=== PATIENT | male | born 1995 | race Caucasian/White ===

== ENCOUNTER 2019-08-24 16:16 | Inpatient (IN) | payer OTHER ==
[~2019-08-24] VITALS: Ht 175.3 cm; Wt 70.9 kg
--- NOTE | 2019-08-24 17:35 | NUR ---
PATIENT MEETS [facility]. CINA=19. PATIENT IS GOING TO [facility] FOR RESIDENTIAL TREATMENT FOR HIS AFTERCARE PLAN. MARYJANE ARELLANO B.A. CUPOLA MELTER
[2019-08-24 18:00] VITALS: BP 120/58
[2019-08-24 18:51] LABS: BASO % 0.5 % (0.0-1.0); EOS # 0.2 10*3/uL (0.0-0.4); EOS % 2.3 % (1.0-4.0); HEMATOCRIT 39.8 % (42.0-52.0); HEMOGLOBIN 13.2 g/dl (14.0-18.0); LYMPH # 2.5 10*3/uL (1.3-4.4); LYMPH % 32.6 % (27.0-41.0); MEAN CELL VOLUME 90.7 fl (80.0-94.0); MEAN CORPUSCULAR HGB 30.1 pg (27.0-31.0); MEAN CORPUSCULAR HGB CONC 33.2 g/dl (33.0-37.0); MEAN PLATELET VOLUME 9.4 fl (9.6-12.3); MONO # 0.8 10*3/uL (0.1-1.0); MONO % 9.6 % (3.0-9.0); NEUT # 4.3 10*3/uL (2.3-7.9); NEUT % 54.6 % (47.0-73.0); PLATELET COUNT AUTOMATED 297 10*3/uL (130-400); RED BLOOD COUNT 4.39 10*6/uL (4.50-5.90); WHITE BLOOD COUNT 7.8 10*3/uL (4.8-10.8)
[2019-08-24 19:05] LABS: ALKALINE PHOSPHATASE 129 U/L (45-117); BUN 10 mg/dl (7-24); CHLORIDE 100 mmol/L (98-107); CREATININE 0.84 mg/dL (0.70-1.30); POTASSIUM 3.3 mmol/L (3.5-5.1); SGOT/AST 200 IU/L (3-35); SGPT/ALT 585 U/L (12-78); SODIUM 135 mmol/L (136-145); TOTAL PROTEIN 7.4 gm/dL (6.4-8.2)
[2019-08-24 19:06] LABS: ETHYL ALCOHOL < 3.0 mg/dl (<3)
--- NOTE | 2019-08-24 19:07 | NUR ---
23 year old MALE admitted to room # 415 BED 2 for stabilization. 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 Compliant with admission procedure. Patient denies any anxiety, but is unable to sit still, taps toes to floor continuously, looks about room, unable to focus eyes on nurse during interview. See assessment forms for additional information about patient status.
[2019-08-24 19:15] LABS: COLOR YELLOW (YELLOW)
[2019-08-24 19:16] LABS: BILIRUBIN NEGATIVE (NEGATIVE); BLOOD NEGATIVE (NEGATIVE); CLARITY CLEAR (CLEAR); GLUCOSE NEGATIVE (NEGATIVE); KETONE NEGATIVE (NEGATIVE); LEUKO ESTERASE NEGATIVE (NEGATIVE); NITRITE NEGATIVE (NEGATIVE); PH 8.5 (5.0-9.0); SPECIFIC GRAVITY 1.005 (1.005-1.030); UROBILINOGEN 0.2 E.U./dl (0.2-1.0)
[2019-08-24 19:17] LABS: EPITHELIAL CELLS 0-2; WBC 0-2 wbc/hpf (0-5)
[2019-08-24 19:31] LABS: URINE AMPHETAMINES < 1000 (1000ng/ml); URINE BARBITURATES < 200 (200ng/ml); URINE BENZODIAZEPINES < 200 (200ng/ml); URINE CANNABINOIDS (THC) < 50 (50ng/ml); URINE COCAINE > 300 (300ng/ml); URINE METHADONE < 300 (300ng/ml); URINE OPIATES < 300 (300ng/ml)
[2019-08-24 19:32] LABS: URINE PHENCYCLIDINE < 25 (25ng/ml)
[2019-08-24 20:00] VITALS: BP 108/41
[2019-08-25] VITALS: BP 114/54
[2019-08-25 08:00] VITALS: BP 116/58
[2019-08-25 12:00] VITALS: BP 106/49
[2019-08-25 16:00] VITALS: BP 123/69
--- NOTE | 2019-08-25 16:21 | NUR ---
PATIENT HAS BEEN ACCEPTED TO [facility] FOR INPATIENT TREATMENT. PATIENT IS SCHEDULED TO GO August POST DISCHARGE. [facility] STAFF WILL SET UP TRANSPORTATION FOR HIM THROUGH HIS INSURANCE. PATIENT AGREES AND UNDERSTANDS HIS AFTERCARE PLAN. MARYJANE ARELLANO B.A. PHYSICAL TESTING SUPERVISOR
[2019-08-25 20:00] VITALS: BP 118/56
--- NOTE | 2019-08-25 21:46 | NUR ---
PATIENT REQUESTING PAIN MEDICATION FOR TOOTH PAIN, MUSCLE ACHES, AND RESTLESSNESS. MOTRIN, REQUIP, AND ROBAXIN ADMINISTERED PRESCRIBED. WILL MONITOR FOR EFFECTIVENESS.
--- NOTE | 2019-08-25 22:46 | NUR ---
PATIENT RESTING WITH EYES CLOSED. RESPIRTIONS EASY AND UNLABORED. CALL LIGHT IN REACH. WILL MONITOR.
[2019-08-26] VITALS: BP 100/48
--- NOTE | 2019-08-26 02:27 | NUR ---
24 HR chart check completed.
--- NOTE | 2019-08-26 04:09 | NUR ---
PATIENT RESTING WITH EYES CLOSED. RESPIRATIONS EASY AND UNLABORED. CALL LIGHT IN REACH. WILL MONITOR.
--- NOTE | 2019-08-26 06:17 | NUR ---
PATIENT RESTING WITH EYES CLOSED. RESPIRATIONS EASY AND UNLABORED. CALL LIGHT IN REACH. WILL MONITOR.
[2019-08-26 08:00] VITALS: BP 123/61
--- NOTE | 2019-08-26 11:04 | NUR ---
Patient displaying withdrawal symptoms, including: irritability, anxiousness, restlessness and agitation, complicated by impulsive behavior. Patient scores a 5 on the withdrawal scale. Scheduled/PRN medications provided, doctor notified of patient's agitation and AMA potential. Will continue to monitor medication effectiveness.
[2019-08-26 12:00] VITALS: BP 122/64
[2019-08-26 16:00] VITALS: BP 106/57
--- NOTE | 2019-08-26 17:00 | NUR ---
Patient comfortable with no c/o or signs of distress. He is pleasant and polite.
--- NOTE | 2019-08-26 19:54 | NUR ---
24 HR chart check completed.
[2019-08-26 20:00] VITALS: BP 124/73
--- NOTE | 2019-08-26 21:39 | NUR ---
PATIENT REQUESTING MEDICATION FOR ANXIETY,MOTRIN,MUSCLE ACHES,AND SLEEP. VISTARIL, OTRIN, ROBAXIN, AND TRAZODONE ADMINISTERED PRESCRIBED. WILL MONITOR FOR EFFECTIVENESS.
--- NOTE | 2019-08-26 22:39 | NUR ---
PATIENT RESTING WITH EYES CLOSED. RESPIRATIONS EASY AND UNLABORED. CALL LIGHT IN REACH. WILL MONITOR.
[2019-08-27] VITALS: BP 102/55
--- NOTE | 2019-08-27 02:00 | NUR ---
PATIENT RESTING WITH EYES CLOSED. RESPIRATIONS EASY AND UNLABORED. CALL LIGHT IN REACH. WILL MONITOR.
--- NOTE | 2019-08-27 04:00 | NUR ---
PATIENT RESTING WITH EYES CLOSED.RESPIRATIONS EASY AND UNLABORED.CALL LIGHT IN REACH. WILL MONITOR.
[2019-08-27 07:04] LABS: BASO # 0.1 10*3/uL (0.0-0.1); BASO % 0.9 % (0.0-1.0); EOS # 0.3 10*3/uL (0.0-0.4); HEMATOCRIT 42.4 % (42.0-52.0); HEMOGLOBIN 13.6 g/dl (14.0-18.0); LYMPH # 2.6 10*3/uL (1.3-4.4); LYMPH % 34.2 % (27.0-41.0); MEAN CELL VOLUME 91.6 fl (80.0-94.0); MEAN CORPUSCULAR HGB 29.4 pg (27.0-31.0); MEAN CORPUSCULAR HGB CONC 32.1 g/dl (33.0-37.0); MEAN PLATELET VOLUME 9.6 fl (9.6-12.3); MONO # 0.8 10*3/uL (0.1-1.0); MONO % 10.8 % (3.0-9.0); NEUT # 3.8 10*3/uL (2.3-7.9); NEUT % 49.2 % (47.0-73.0); PLATELET COUNT AUTOMATED 307 10*3/uL (130-400); RED BLOOD COUNT 4.63 10*6/uL (4.50-5.90); RED CELL DISTRI WIDTH 13.2 % (0-14.5); WHITE BLOOD COUNT 7.7 10*3/uL (4.8-10.8)
[2019-08-27 07:25] LABS: CREATININE 0.95 mg/dL (0.70-1.30)
[2019-08-27 08:00] VITALS: BP 106/50
[2019-08-27 12:00] VITALS: BP 117/61
--- NOTE | 2019-08-27 14:13 | NUR ---
NICOTINE PATCH PLACED ON RIGHT SHOULDER
[2019-08-27 16:00] VITALS: BP 115/53
--- NOTE | 2019-08-27 16:35 | NUR ---
Patient displaying withdrawal symptoms, including: irritability, anxiousness, restlessness and agitation. PRN medications provided, SEE EMAR. Will continue to monitor medication effectiveness
[2019-08-27 20:00] VITALS: BP 114/60
--- NOTE | 2019-08-27 20:05 | NUR ---
PATIENT IS RESTING IN BED WITH EASY AND REGULAR RESPERS ON ROOM AIR. ASSESSMENT IS COMPLETE. PATIENT C/O HEADAHCE, BODY ACHES, RESTLESS LEGS, CONSTIPATION AND NAUSEA. BED IS LOW, LOCKED, AND CALL LIGHT IS WITHIN REACH. SEE SHIFT ASSESSMENT.
--- NOTE | 2019-08-27 20:17 | NUR ---
PRN BENTYL GIVEN FOR ABDOMINAL CRAMPS, TYLENOL FOR HEADACHE, SENOKOT FOR CONSTIPATION, AND ZOFRAN FOR NAUSEA. PATIENT TOLERATED WELL. CALL LIGHT IS WITHIN REACH, WILL MONITOR EFFECT OF MEDICATIONS.
--- NOTE | 2019-08-27 21:42 | NUR ---
PRN TRAZADONE GIVEN FOR INSOMNIA, ROBAXIN FOR BODY ACHES, AND VISTARIL FOR ANXIETY. WILL MONITOR EFFECT. CALL LIGHT IS WITHIN REACH.
--- NOTE | 2019-08-28 | NUR ---
PATIENT SLEEPING. RESPERS EASY AND REGULAR. CALL LIGHT IS WITHIN REACH.
--- NOTE | 2019-08-28 03:44 | NUR ---
CHART CHECK COMPLETE.
[2019-08-28 08:00] VITALS: BP 116/66
--- NOTE | 2019-08-28 08:30 | NUR ---
Patient resting quietly with no c/o discomfort. Respirations easy and regular. Vital signs stable. No overt distress. ANNEL CHOW R
[2019-08-28 12:00] VITALS: BP 122/62
--- NOTE | 2019-08-28 14:23 | NUR ---
Discharge instructions reviewed with patient/family. Patient receptive and verbalizes understanding. Follow-up care arranged. Written instructions given to patient/family. ANNEL CHOW
== END 2019-08-28 14:23 | disposition home or self-care (01) | DRG 773 ==
LOC: 5E 16:16
PROVIDERS: Student in an Organized Health Care Education/Training Program; ADMIT Internal Medicine
DX: F11.23 Opioid dependence with withdrawal (principal); F41.9 Anxiety disorder, unspecified; E87.1 Hypo-osmolality and hyponatremia; E87.6 Hypokalemia; F17.210 Nicotine dependence, cigarettes, uncomplicated; D64.9 Anemia, unspecified; R74.0 Nonspecific elevation of levels of transaminase and lactic acid dehydrogenase [LDH]; Z71.6 Tobacco abuse counseling; Z80.0 Family history of malignant neoplasm of digestive organs; Z79.899 Other long term (current) drug therapy

== ENCOUNTER 2021-06-02 15:48 | Inpatient (IN) | payer OTHER ==
[~2021-06-02] VITALS: Ht 175.2 cm; Wt 56.7 kg
[2021-06-02 15:55] VITALS: BP 162/98
[2021-06-02 16:21] LABS: HEMATOCRIT 48.3 % (42.0-52.0); MEAN CELL VOLUME 86.4 fl (80.0-94.0); MEAN CORPUSCULAR HGB 29.2 pg (27.0-31.0); MEAN CORPUSCULAR HGB CONC 33.7 g/dl (33.0-37.0); MEAN PLATELET VOLUME 9.8 fl (9.6-12.3); PLATELET COUNT AUTOMATED 321 10*3/uL (130-400); RED BLOOD COUNT 5.59 10*6/uL (4.50-5.90); RED CELL DISTRI WIDTH 12.2 % (0-14.5); WHITE BLOOD COUNT 16.3 10*3/uL (4.8-10.8)
[2021-06-02 16:31] LABS: INTERNATIONAL NORM RATIO 1.1 (2.0-3.5)
[2021-06-02 16:35] LABS: ALBUMIN 4.5 gm/dl (3.1-4.5); ALKALINE PHOSPHATASE 101 U/L (45-117); BUN 25 mg/dl (7-24); CHLORIDE 102 mmol/L (98-107); CREATININE 1.16 mg/dL (0.70-1.30); POTASSIUM 4.4 mmol/L (3.5-5.1); SGOT/AST 131 IU/L (3-35); SGPT/ALT 221 U/L (12-78); SODIUM 135 mmol/L (136-145); TOTAL PROTEIN 8.9 gm/dL (6.4-8.2)
[2021-06-02 16:36] LABS: ETHYL ALCOHOL < 3.0 mg/dl (<3); TROPONIN I < 0.015 ng/ml (<0.045)
[2021-06-02 16:51] LABS: ATYPICAL LYMPHS 4 % (0-0); BASOPHILS 1 % (0-1); TOTAL CELLS COUNTED 100 #CELLS
[2021-06-02 16:52] LABS: PLATELET SUFFICIENCY NORMAL (NORMAL)
[2021-06-02 17:19] LABS: ACETAMINOPHEN (TYLENOL) < 2.0 ug/ml (10-30)
[2021-06-02 17:51] LABS: BILIRUBIN Negative (Negative); BLOOD Negative (Negative); CLARITY Cloudy (Clear); COLOR Dark Yellow (Yellow); GLUCOSE Negative (Negative); KETONE Trace (Negative); LEUKO ESTERASE Negative (Negative); NITRITE Negative (Negative); SPECIFIC GRAVITY >= 1.030 (1.001-1.030)
[2021-06-02 17:59] LABS: URINE AMPHETAMINES > 1000 (1000ng/ml); URINE BARBITURATES < 200 (200ng/ml); URINE BENZODIAZEPINES < 200 (200ng/ml); URINE CANNABINOIDS (THC) > 50 (50ng/ml); URINE COCAINE < 300 (300ng/ml); URINE METHADONE < 300 (300ng/ml); URINE OPIATES > 300 (300ng/ml)
[2021-06-02 18:00] LABS: URINE PHENCYCLIDINE < 25 (25ng/ml)
[2021-06-02 18:05] LABS: BACTERIA 2+; EPITHELIAL CELLS 0-2; MUCOUS 3+; RBC 0-2 rbc/hpf (0-2)
[2021-06-02 18:56] VITALS: BP 141/62
[2021-06-02 19:29] VITALS: BP 98/58
[2021-06-03] VITALS: BP 119/48
[2021-06-03 06:27] LABS: BASO # 0.1 10*3/uL (0.0-0.1); BASO % 0.9 % (0.0-1.0); EOS # 0.5 10*3/uL (0.0-0.4); EOS % 3.8 % (1.0-4.0); HEMATOCRIT 48.1 % (42.0-52.0); LYMPH % 33.8 % (27.0-41.0); MEAN CELL VOLUME 87.8 fl (80.0-94.0); MEAN CORPUSCULAR HGB 29.4 pg (27.0-31.0); MEAN CORPUSCULAR HGB CONC 33.5 g/dl (33.0-37.0); MEAN PLATELET VOLUME 9.6 fl (9.6-12.3); MONO # 1.2 10*3/uL (0.1-1.0); MONO % 9.9 % (3.0-9.0); NEUT % 50.9 % (47.0-73.0); PLATELET COUNT AUTOMATED 257 10*3/uL (130-400); RED BLOOD COUNT 5.48 10*6/uL (4.50-5.90); RED CELL DISTRI WIDTH 12.2 % (0-14.5); WHITE BLOOD COUNT 11.8 10*3/uL (4.8-10.8)
[2021-06-03 06:38] LABS: ALBUMIN 3.6 gm/dl (3.1-4.5); ALKALINE PHOSPHATASE 86 U/L (45-117); BUN 20 mg/dl (7-24); CHLORIDE 105 mmol/L (98-107); CREATININE 0.85 mg/dL (0.70-1.30); POTASSIUM 3.9 mmol/L (3.5-5.1); SGOT/AST 123 IU/L (3-35); SGPT/ALT 188 U/L (12-78); SODIUM 138 mmol/L (136-145); TOTAL PROTEIN 7.4 gm/dL (6.4-8.2)
[2021-06-03 08:00] VITALS: BP 97/42
[2021-06-03 12:00] VITALS: BP 187/100
[2021-06-03 16:00] VITALS: BP 95/48
[2021-06-03 20:00] VITALS: BP 102/45
[2021-06-04 06:38] LABS: BASO # 0.1 10*3/uL (0.0-0.1); EOS # 0.5 10*3/uL (0.0-0.4); EOS % 5.9 % (1.0-4.0); HEMATOCRIT 45.9 % (42.0-52.0); LYMPH # 3.4 10*3/uL (1.3-4.4); LYMPH % 38.6 % (27.0-41.0); MEAN CELL VOLUME 87.3 fl (80.0-94.0); MEAN CORPUSCULAR HGB 29.3 pg (27.0-31.0); MEAN CORPUSCULAR HGB CONC 33.6 g/dl (33.0-37.0); MEAN PLATELET VOLUME 9.6 fl (9.6-12.3); MONO # 0.8 10*3/uL (0.1-1.0); MONO % 9.3 % (3.0-9.0); NEUT # 3.9 10*3/uL (2.3-7.9); NEUT % 44.6 % (47.0-73.0); PLATELET COUNT AUTOMATED 232 10*3/uL (130-400); RED BLOOD COUNT 5.26 10*6/uL (4.50-5.90); RED CELL DISTRI WIDTH 12.2 % (0-14.5); WHITE BLOOD COUNT 8.8 10*3/uL (4.8-10.8)
[2021-06-04 07:00] LABS: ALBUMIN 3.3 gm/dl (3.1-4.5); ALKALINE PHOSPHATASE 90 U/L (45-117); BUN 14 mg/dl (7-24); CHLORIDE 108 mmol/L (98-107); CREATININE 0.82 mg/dL (0.70-1.30); POTASSIUM 3.7 mmol/L (3.5-5.1); SGOT/AST 123 IU/L (3-35); SGPT/ALT 185 U/L (12-78); SODIUM 138 mmol/L (136-145); TOTAL PROTEIN 6.9 gm/dL (6.4-8.2)
[2021-06-04 08:00] VITALS: BP 117/60
[2021-06-04 08:08] LABS: HEP B CORE AB, IGM Negative (Negative); HEPATITIS B SURFACE AG Negative (Negative)
[2021-06-04 11:48] LABS: HEPATITIS C VIRUS ANTIBODY >11.0 s/co (0.0-0.9)
[2021-06-04 12:00] VITALS: BP 112/64
[2021-06-04 16:00] VITALS: BP 107/65
[2021-06-04 19:56] VITALS: BP 107/64
[2021-06-05] VITALS: BP 96/53
[2021-06-05] MEDS ORDERED: BUPRENORPHINE HY2 MG SL (07:54)
[2021-06-05 08:00] VITALS: BP 112/66
== END 2021-06-05 09:52 | disposition home or self-care (01) | DRG 773 ==
LOC: ED 15:48 → EDHOLD 18:39 → 5E 18:39
PROVIDERS: Internal Medicine; Physician Assistant; ADMIT Family Medicine; ATTEND Family Medicine
DX: F10.239 Alcohol dependence with withdrawal, unspecified (principal); F11.23 Opioid dependence with withdrawal; E83.41 Hypermagnesemia; E87.1 Hypo-osmolality and hyponatremia; R65.10 Systemic inflammatory response syndrome (SIRS) of non-infectious origin without acute organ dysfunction; R74.01 Elevation of levels of liver transaminase levels; J45.20 Mild intermittent asthma, uncomplicated; F17.210 Nicotine dependence, cigarettes, uncomplicated; F15.23 Other stimulant dependence with withdrawal; F12.23 Cannabis dependence with withdrawal; B19.20 Unspecified viral hepatitis C without hepatic coma; Z71.6 Tobacco abuse counseling